=== PATIENT | male | born 1945 | race Caucasian/White ===

== ENCOUNTER 2022-09-03 08:49 | Emergency (ER) | payer MEDICARE, BC, SELFPAY ==
[2022-09-03 09:38] VITALS: BP 145/59; PULSE 82; RESP 18; TEMP 36.7; O2SAT 96; BMI 38.2
[2022-09-03 09:43] LABS: UTC Strep Screen (Rapid) Negative (Negative)
--- NOTE | 2022-09-03 10:00 | EXP.UTC ---
Discharge Plan Disposition Patient Disposition: Home, Self-Care Condition: Good Referrals Follow up/Referrals: Ari Tiwari MD [Primary Care Provider] - See instructions Activity Restrictions/Add. Instructions Additional Instructions/Restrictions: Take antibiotics at home Clinical Impressions Clinical Impression: Right otitis media [place] ED [place]: Michaela Schofield [facility] [place] Stated complaint: Sore throat, RT ear pain Mode of Arrival: Ambulatory Source of Information: Patient Limitations: No Limitations Time Seen by Provider: 09/03/22 10:00 Description of Symptoms (Recalled from Triage Doc. by RN): pt comes in with c/o right ear pain for 3 days, and throat pain for 2 days HEENT Symptoms (Recalled from RN notes): Yes Resp Symptoms (Recalled from RN notes): No Skin Symptoms (Recalled from RN notes): No MS Symptoms (Recalled from RN notes): No Functional Status (Recalled from RN notes): n/a History of Present Illness Provider Complaint: Sore throat, sinus pain, right ear pain X 3 days. No fever. Onset (ago): day(s) (3) Associated symptoms: denies other symptoms Treatments prior to arrival: none Related Data Allergies Allergy/AdvReac Type Severity Reaction Status Date / Time No Known Allergies Allergy Verified 09/03/22 09:41 Worker's Comp Is this a Worker's Comp case?: No PFSH PFSH Social History Smoking Status: Never smoker alcohol intake: never current occupational status: retired Travel in the last 8 weeks: None ROS Obtained: Yes All systems reviewed & no additional complaints except as documented Constitutional Constitutional: Denies fever(s) ENT Ears, Nose, Mouth, and Throat: Reports otalgia, Reports sinus pressure and Reports sore throat Physical Exam General General appearance: alert and in no apparent distress Head Head exam: atraumatic, normocephalic and normal inspection Eye Eye exam: Present normal appearance, PERRL and EOMI ENT ENT exam: Present normal exam, normal oropharynx, mucous membranes moist and normal external ear exam Expanded ENT Exam TM/Canal exam: Right TM: erythema and effusion Neck Neck exam: Present normal inspection, full ROM and trachea midline; Absent meningismus or lymphadenopathy Chest Chest inspection: Present normal inspection and symmetric chest wall rise; Absent tenderness Respiratory Respiratory exam: Present normal lung sounds bilaterally; Absent respiratory distress Cardiovascular Cardiovascular exam: Present regular rate and normal rhythm; Absent JVD Abdominal Exam Abdominal exam: Present soft and normal bowel sounds; Absent distention, tenderness or guarding Extremities Exam Extremities exam: Present normal inspection, full ROM and normal capillary refill; Absent calf tenderness Back Exam Back exam: Present normal inspection; Absent tenderness Neurological Exam Neurological exam: Present alert and oriented X3 Psychiatric Psychiatric exam: Present normal affect and normal mood Skin Skin exam: Present warm, dry, intact and normal color Lymphatic Lymphatic Findings: no adenopathy Medical Decision Making Frank Inquiry Pt receiving controlled substance: No Vital Signs: 09/03/22 09:38 Temperature 98.1 F Temperature Source Oral Pulse Rate [Left Radial] 82 Respiratory Rate 18 Blood Pressure [Right Arm] 145/59 H Blood Pressure Mean [Right Arm] 87 02 Sat by Pulse Oximetry 96 Lab Data Lab results reviewed: Yes I reviewed the patient's lab results. Lab Results 09/03/22 09:30: Strep Scn Rapid Clinic Negative Orders (Tests/Meds): ORDERS Category Date Time Status Strep Screen Confirmation Stat Micro 09/03/22 09:30 Received
[2022-09-03 10:24] VITALS: BP 145/59; PULSE 82; RESP 18; TEMP 36.7
== END 2022-09-03 10:25 | disposition home or self-care (01) ==
PROVIDERS: Emergency Provider Physician Assistant; PCP Emergency Medicine
DX: H66.91 Otitis media, unspecified, right ear (principal)
CPT/HCPCS: 87880; 99212; G0463

== ENCOUNTER 2023-12-12 09:51 | Outpatient (RCR) | payer MEDICARE, BC, SELFPAY | END 2024-01-25 15:00 | disposition home or self-care (01) | LOC: PT 09:51 | PROVIDERS: Visit Provider Emergency Medicine | DX: I25.810 Atherosclerosis of coronary artery bypass graft(s) without angina pectoris (principal); Z95.1 Presence of aortocoronary bypass graft | CPT/HCPCS: 93798 ==

== ENCOUNTER 2024-06-29 09:03 | Outpatient (CLI) | payer MEDICARE, BC, SELFPAY ==
[2024-06-29 09:21] LABS: Microscopic, Urine URINE MICROSCOPIC (MICROSCOPIC)
[2024-06-29 09:52] LABS: Basophils # 0.1 K/mm3 (0-0.2); Eosinophils # 0.2 K/mm3 (0.0-0.4); Eosinophils % 2.7 % (0.1-12.0); Hematocrit 46.1 % (42.0-52.0); Hemoglobin 15.1 g/dL (14.1-18.0); Lymphocytes # 1.2 K/mm3 (0.7-4.5); Lymphocytes % 14.4 % (10-50); Mean Corpuscular HGB Conc 32.8 g/dL (31.8-35.4); Mean Corpuscular Hemoglobin 29.7 pg (27.0-31.2); Mean Corpuscular Volume 90.6 fl (80-94); Mean Platelet Volume 8.2 fl (7.4-10.4); Monocytes # 0.6 K/mm3 (0.1-1.0); Monocytes % 7.3 % (1.7-9.3); Neutrophils # 6.1 K/mm3 (1.8-7.8); Neutrophils % 74.5 % (37.0-80.0); Platelet Count 206 K/mm3 (142-424); Red Blood Count 5.09 M/mm3 (4.60-6.20); Red Cell Distribution Width 14.1 % (11.5-17.5); White Blood Count 8.1 K/mm3 (4.8-10.8)
[2024-06-29 10:03] LABS: Appearance,Urine CLEAR (Clear); Bilirubin,Urine Negative (Negative); Blood, Urine Negative (Negative); Color,Urine YELLOW (Yellow); Glucose,Urine (UA) Negative (Negative); Ketones,Urine Negative (Negative); Leukocyte Esterase,Urine Negative (Negative); Nitrate,Urine Negative (Negative); Protein,Urine Negative (Negative); Urobilinogen,Urine 0.2 EU/dl (0.2)
[2024-06-29 10:26] LABS: Hemoglobin A1C 7.7 % (4.0-6.0)
[2024-06-29 10:34] LABS: Alanine Aminotransferase 29 U/L (12-78); Albumin Level 3.7 g/dl (3.5-5.0); Albumin/Globulin Ratio 1.4 (1.1-1.8); Alkaline Phosphatase 68 U/L (38-126); Anion Gap 7.6 mEq/L (5-15); Aspartate Amino Transferase 33 U/L (17-59); Bilirubin,Total 0.7 mg/dl (0.2-1.3); Blood Urea Nitrogen 19 mg/dl (9-20); Calcium 8.8 mg/dl (8.4-10.2); Carbon Dioxide 27 mmol/L (22.0-30.0); Chloride 107 mmol/L (98-107); Chol/HDL Ratio 3.4 (1-3.5); Cholesterol 141 mg/dl (140-200); Estimated Glomerular Filt Rate 109 ml/min (>60); GFR (African American) 132 ML/MIN (>60); Globulin 2.6 g/dL (1.3-3.2); Glucose 96 mg/dl (74-100); HDL Cholesterol 42 mg/dl (40-60); Potassium 4.6 mmoL/L (3.5-5.1); Sodium 137 mmol/L (136-145); Total Protein,Serum 6.3 g/dl (6.3-8.2); Triglycerides 110 mg/dl (30-150); VLDL Cholesterol 22 mg/dL (0-40)
[2024-06-29 10:45] LABS: Direct LDL Cholesterol 70.93 mg/dL (100-129)
[2024-06-29 10:53] LABS: 25-OH Vitamin D, Total 46.9 ng/mL (30-100)
[2024-06-29 11:03] LABS: Thyroid Stimulating Hormone 3.21 uIU/mL (0.465-4.68)
[2024-06-29 11:26] LABS: Squamous Epithelial Cell,Urine Occasional #/hpf (0-5); WBC,Urine Occasional #/hpf (0-3)
[2024-06-29 11:39] LABS: Vitamin B12 312 pg/mL (239-931)
[2024-06-29 12:01] LABS: Folate 9.82 ng/mL
== END 2024-06-29 23:59 | disposition home or self-care (01) ==
LOC: LAB 09:06
PROVIDERS: PCP Emergency Medicine; Visit Provider Emergency Medicine
DX: E11.9 Type 2 diabetes mellitus without complications (principal); E55.9 Vitamin D deficiency, unspecified; I10 Essential (primary) hypertension; E03.9 Hypothyroidism, unspecified; R53.83 Other fatigue; E78.5 Hyperlipidemia, unspecified
CPT/HCPCS: 36415; 80053; 80061; 81001; 82306; 82607; 82746; 83036; 84443; 85025

== ENCOUNTER 2024-11-10 09:56 | Emergency (ER) | payer MEDICARE, BC, SELFPAY ==
[2024-11-10 10:10] VITALS: BP 180/76; PULSE 74; RESP 18; TEMP 36.6; O2SAT 96; BMI 36.1
--- NOTE | 2024-11-10 10:26 | EXP.UTC ---
Discharge Plan Disposition Patient Disposition: Home, Self-Care Condition: Good Prescriptions Prescriptions: New benzonatate 100 mg capsule 100 mg PO TID PRN (Reason: cough) Qty: 30 0RF azithromycin 250 mg tablet See Rx Instructions .ROUTE .COMPLEX Qty: 6 0RF Rx Instructions: For 250 mg dose pack: take 500 mg today (day 1), then 250 mg for 4 days (days 2-5) No Action insulin aspart U-100 [Novolog FlexPen U-100 Insulin] 100 unit/mL (3 mL) insulin pen 1 sliding scale dose SQ DIRECTED lisinopril 5 mg tablet 5 mg PO DAILY tamsulosin 0.4 mg capsule 0.4 mg PO DAILY gabapentin 300 mg capsule 300 mg PO HS levothyroxine 125 mcg tablet 125 mcg PO DAILY Eliquis 5 mg tablet 2.5 mg PO BID aspirin [Adult Aspirin Regimen] 81 mg tablet,delayed release (DR/EC) 81 mg PO BID carvedilol 6.25 mg tablet 6.25 mg PO DAILY Referrals Follow up/Referrals: Ari Tiwari MD [Primary Care Provider] - See instructions Activity Restrictions/Add. Instructions Additional Instructions/Restrictions: Take medication as prescribed. If symptoms persist or worsen, return to clinic or go to PCP. Take BP medication once you are home. Do not take OTC cold medications as these can increase your blood pressure. Clinical Impressions Clinical Impression: Upper respiratory tract infection Qualifiers: URI type: unspecified URI Qualified Code(s): J06.9 - Acute upper respiratory infection, unspecified Instructions Patient Instructions: DI for Viral Upper Respiratory Infection -- Adult Print Language Print Language: Greek Discharge ED Provider: Lien Granados [facility] – [place], [place] HPI General Stated complaint: stuffy head, watery eyes, chest aches from cough Mode of Arrival: Ambulatory Source of Information: Patient Time Seen by Provider: 11/10/24 10:08 Description of Symptoms (Recalled from Triage Doc. by RN): sinus pressure, cough, congestion, X1 WEEK HEENT Symptoms (Recalled from RN notes): No Resp Symptoms (Recalled from RN notes): Yes Skin Symptoms (Recalled from RN notes): No MS Symptoms (Recalled from RN notes): No Functional Status (Recalled from RN notes): WNL History of Present Illness Provider Complaint: Pt reports that he has been sick for the last 10 days with cough, runny nose, body aches, and watery eyes. He reports that he has been taking Mucinex for his symptoms. recently got sick with the same symptoms. Pt BP is elevated and pt relates that he has not taken his medication today. Related Data Home Medications ?Medication ?Instructions ?Recorded ?Confirmed apixaban 5 mg tablet (Eliquis) 2.5 mg PO BID 09/12/23 09/12/23 aspirin 81 mg tablet,delayed 81 mg PO BID 09/12/23 11/10/24 release (Adult Aspirin Regimen) gabapentin 300 mg capsule 300 mg PO HS 09/12/23 11/10/24 insulin aspart U-100 100 unit/mL 1 sliding scale dose SQ DIRECTED 09/12/23 11/10/24 (3 mL) subcutaneous pen (Novolog FlexPen U-100 Insulin aspart) levothyroxine 125 mcg tablet 125 mcg PO DAILY 09/12/23 11/10/24 lisinopril 5 mg tablet 5 mg PO DAILY 09/12/23 11/10/24 tamsulosin 0.4 mg capsule 0.4 mg PO DAILY 09/12/23 11/10/24 carvedilol 6.25 mg tablet 6.25 mg PO DAILY 11/10/24 11/10/24 Previous Rx's ?Medication ?Instructions ?Recorded azithromycin 250 mg tablet See Rx Instructions PO .COMPLEX #6 11/10/24 tabs benzonatate 100 mg capsule 100 mg PO TID PRN cough #30 caps 11/10/24 Allergies Allergy/AdvReac Type Severity Reaction Status Date / Time No Known Allergies Allergy Verified 09/12/23 13:43 Worker's Comp Is this a Worker's Comp case?: No [facility] Disclaimer: The information contained in this section may have been updated after the patient was seen, as this information can be updated by other users. Medical History (Updated 11/10/24 @ 10:35 by Lien Granados APRN) Chronic otitis externa of right ear Dermatitis of ear canal Hearing loss Prostate cancer Atrial fibrillation HTN (hypertension), benign Hyperthyroidism T2DM (type 2 diabetes mellitus) Surgical History (Updated 09/12/23 @ 14:03 by JOANN Ayala) H/O total knee replacement History of cholecystectomy Hx of tonsillectomy Family History (Updated 09/12/23 @ 14:04 by JOANN Ayala) Other Cancer Diabetes Heart attack Hypertension Stroke Thyroid disorder Social History Smoking Status: Never smoker alcohol intake: never current occupational status: retired Travel in the last 8 weeks: None Have you lived/traveled outside [place] in past 30 days?: No Contact w/someone who lives/traveled outside [place] past 30 days?: No Exposure to someone with infectious disease in past 14 days?: No Do you have a fever (greater than 100.4 F or 38 C)?: No Have you tested positive for COVID-19: No Exposed to someone with COVID-19 in past 14 days?: No Do you have a sore throat?: No Do you have a cough?: Yes Do you have any weakness?: No Do you have any diarrhea?: No Are you experiencing any unusual bleeding?: No Do you have any muscle aches/pain?: No Do you have any abdominal pain?: No Are you experiencing loss of taste or smell?: No ROS Obtained: Yes All systems reviewed & no additional complaints except as documented Constitutional Constitutional: Reports system reviewed and no additional complaints, except as documented, Reports body ache and Reports malaise Eyes Eyes: Reports system reviewed and no additional complaints, except as documented, Reports eye discharge and Reports irritation ENT Ears, Nose, Mouth, and Throat: Reports system reviewed and no additional complaints, except as documented, Reports nasal congestion and Reports nasal discharge Cardiovascular Cardiovascular: Reports system reviewed and no additional complaints, except as documented Respiratory Respiratory: Reports system reviewed and no additional complaints, except as documented and Reports cough Gastrointestinal Gastrointestingal: Reports system reviewed and no additional complaints, except as documented Genitourinary Male Genitourinary: Reports system reviewed and no additional complaints, except as documented Musculoskeletal Musculoskeletal: Reports system reviewed and no additional complaints, except as documented Integumentary/Breasts Skin/Breast: Reports system reviewed and no additional complaints, except as documented Neurologic Neurologic: Reports system reviewed and no additional complaints, except as documented Endocrine Endocrine: Reports system reviewed and no additional complaints, except as documented Hematologic/Lymphatic Henatologic/Lymphatic: Reports system reviewed and no additional complaints, except as documented Allergic/Immunologic Allergic/Immunologic: Reports system reviewed and no additional complaints, except as documented Physical Exam General General appearance: alert Comment: ill appearing Head Head exam: atraumatic and normocephalic Eye Eye exam: Present conjunctival redness and discharge (clear drainage) Expanded ENT Exam External ear exam: Present normal external inspection Nose exam: Absent sinus tenderness Nasal speculum exam: Bilateral: other (clear) Mouth exam: Present normal external inspection Teeth exam: Present normal inspection Throat exam: Present normal inspection Neck Neck exam: Present normal inspection; Absent lymphadenopathy Chest Chest inspection: Present normal inspection and symmetric chest wall rise Respiratory Respiratory exam: Present other (course sounds throughout) Cardiovascular Cardiovascular exam: Present regular rate and normal rhythm Abdominal Exam Abdominal exam: Present soft Extremities Exam Extremities exam: Present normal inspection Back Exam Back exam: Present normal inspection Neurological Exam Neurological exam: Present alert and oriented X3 Psychiatric Psychiatric exam: Present normal affect and normal mood Skin Skin exam: Present warm, dry and intact Lymphatic Lymphatic Findings: no adenopathy Medical Decision Making Medical Records Screening: Per USPSTF and CDC recommendations, given the prevalence of disease in our region, it is our hospital?s policy to screen for HIV and viral Hepatitis for all patients aged 18 and over and those with ongoing risk factors. Frank Inquiry Pt receiving controlled substance: No Frank was queried for this patient: No Vital Signs: 11/10/24 10:10 Temperature 97.8 F Temperature Source Oral Pulse Rate [Left Radial] 74 Respiratory Rate 18 Blood Pressure [Left Arm] 180/76 H Blood Pressure Mean [Left Arm] 110 02 Sat by Pulse Oximetry 96
[2024-11-10 10:44] VITALS: BP 180/76; PULSE 74; RESP 18; TEMP 36.6
[2024-11-10 10:46] VITALS: BP 151/61
== END 2024-11-10 10:50 | disposition home or self-care (01) ==
PROVIDERS: Emergency Provider Nurse Practitioner Family; PCP Emergency Medicine
DX: J06.9 Acute upper respiratory infection, unspecified (principal)
CPT/HCPCS: 99213; G0381

== ENCOUNTER 2024-11-12 16:48 | Outpatient (CLI) | payer MEDICARE, BC, SELFPAY ==
[2024-11-12 17:21] LABS: Basophils # 0.1 K/mm3 (0-0.2); Basophils % 0.6 % (0.1-2.0); Eosinophils # 0.1 K/mm3 (0.0-0.4); Eosinophils % 0.6 % (0.1-12.0); Hematocrit 43.6 % (42.0-52.0); Lymphocytes # 0.8 K/mm3 (0.7-4.5); Lymphocytes % 7.4 % (10-50); Mean Corpuscular HGB Conc 34.4 g/dL (31.8-35.4); Mean Corpuscular Hemoglobin 29.4 pg (27.0-31.2); Mean Corpuscular Volume 85.5 fl (80-94); Mean Platelet Volume 9.8 fl (7.4-10.4); Monocytes # 0.6 K/mm3 (0.1-1.0); Monocytes % 5.4 % (1.7-9.3); Neutrophils # 8.9 K/mm3 (1.8-7.8); Neutrophils % 82.3 % (37.0-80.0); Platelet Count 278 K/mm3 (142-424); Red Cell Distribution Width 12.6 % (11.5-17.5); White Blood Count 10.9 K/mm3 (4.8-10.8)
[2024-11-12 17:47] LABS: Lipase 60 U/L (23-300)
[2024-11-12 18:44] LABS: Amylase 46 U/L (30-110)
== END 2024-11-12 23:59 | disposition home or self-care (01) ==
LOC: LAB 16:51
PROVIDERS: PCP Emergency Medicine; Visit Provider Emergency Medicine
DX: J15.0 Pneumonia due to Klebsiella pneumoniae (principal)
CPT/HCPCS: 36415; 82150; 83690; 85025; 87040

== ENCOUNTER 2024-12-04 11:19 | Outpatient (CLI) | payer MEDICARE, BC, SELFPAY ==
[2024-12-04 11:39] LABS: Coronavirus 19, PCR Not Detected (NotDetected); Human Rhinovirus Not Detected (NotDetected); Influenza A, PCR Not Detected (NotDetected); Influenza B, PCR Not Detected (NotDetected); Respiratory Syncytial Virus Not Detected (NotDetected)
[2024-12-04 11:54] LABS: Basophils # 0.1 K/mm3 (0-0.2); Basophils % 0.7 % (0.1-2.0); Eosinophils # 0.2 K/mm3 (0.0-0.4); Eosinophils % 2.8 % (0.1-12.0); Hematocrit 42.6 % (42.0-52.0); Hemoglobin 14.5 g/dL (14.1-18.0); Lymphocytes # 0.7 K/mm3 (0.7-4.5); Lymphocytes % 9.9 % (10-50); Mean Corpuscular Hemoglobin 29.3 pg (27.0-31.2); Mean Corpuscular Volume 86.1 fl (80-94); Mean Platelet Volume 10.2 fl (7.4-10.4); Monocytes # 0.7 K/mm3 (0.1-1.0); Monocytes % 10.6 % (1.7-9.3); Neutrophils # 5.1 K/mm3 (1.8-7.8); Neutrophils % 75.1 % (37.0-80.0); Platelet Count 204 K/mm3 (142-424); Red Blood Count 4.95 M/mm3 (4.60-6.20); Red Cell Distribution Width 13.1 % (11.5-17.5); White Blood Count 6.8 K/mm3 (4.8-10.8)
--- NOTE | 2024-12-04 12:10 | ECG_ITS ---
APPROVED REPORT Exam: Resting ECG HR:67 bpm ECG Measurements Heart Rate 67 AXES DE 195 P -48 QRSd 123 QRS 109 QT 420 T 81 QTc 435 Conclusion SINUS RHYTHM WITH SINUS ARRHYTHMIA RIGHT AXIS DEVIATION [QRS AXIS > 100] RIGHT BUNDLE BRANCH BLOCK [120+ ms QRS DURATION, UPRIGHT V1, 40+ ms S IN I/aVL/V4/V5/V6] ANTEROSEPTAL MYOCARDIAL INFARCTION , OF INDETERMINATE AGE [40+ ms Q WAVE IN V1-V4] ABNORMAL ECG Electronically signed by : AMARA CORTES, 12/14/2024 09:31:08
[2024-12-04 12:32] LABS: Troponin I < 0.01 ng/ml (0.00-0.034)
== END 2024-12-04 23:59 | disposition home or self-care (01) ==
LOC: LAB 11:22
PROVIDERS: PCP Emergency Medicine; Visit Provider Emergency Medicine
DX: R05.2 Subacute cough (principal); R09.89 Other specified symptoms and signs involving the circulatory and respiratory systems
CPT/HCPCS: 36415; 84484; 85025; 87631; 93005

== ENCOUNTER 2025-03-11 09:12 | Outpatient (CLI) | payer MEDICARE, BC, SELFPAY ==
--- OUTSIDE RECORDS SUMMARY | 2025-03-11 09:17 | XMS_ITS | Data Portability ---
Author Organization [facility] Address [address] [place] [address] Assessment Encounter Date Assessment Date Assessment LastModified by Organization Details LastModified Time 08/29/2020 08/29/2020 SURGERY DATE: 08/29/2020 PREOPERATIVE DIAGNOSIS: Prostate cancer. POSTOPERATIVE DIAGNOSIS: Prostate cancer. PROCEDURE: Transrectal ultrasound-guided insertion of gold fiducials (4). ANESTHESIA: Local. INDICATIONS: This is a 75-year-old white male who was diagnosed with prostate cancer by Dr. Paul Briseno. He then saw Dr. Ilan Oro at [facility] and is scheduled for IMRT (43 fractions) and will be receiving LHRH injection by Dr. Garvey next week. OPERATIVE NOTE: The patient was placed on the operating room table in a left lateral decubitus position. The B and K transrectal ultrasound probe was introduced. A 10 mm of Xylocaine was injected at the base and apex of the prostate for local anesthesia. The gland measured 78.7 cubic cm in volume. The ultrasound was then used to guide gold fiducials into the right lateral, left lateral, apex, and base of the prostate without difficulty. The probe was then removed atraumatically and he was taken to the recovery room in stable condition. There were no complications. [email or web address] Not available 08/29/2020 23:50:30 Plan of Treatment Reminders Order Date Submit Date Provider Last Modified By Organization Details Last Modified Time Details Appointments None recorded. Lab None recorded. Referral None recorded. Procedures None recorded. Surgeries None recorded. Imaging None recorded. Medication Orders betamethaso ne valerate 0.1 % topical ointment 2018 019 [id number], [address] [place], [id number], 9 14:55:26 Patient TargetsNo targets recorded. Patient Instructions Encounter Date Encounter Id Patient Instructions Last Modified By Organization Details Last Modified Time 02/16/2019 [id number] 1. 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 2. Right foreign body removal performed today. Full risks, complications, and benefits of operative versus non-operative intervention have been thoroughly discussed. Understanding was expressed, informed consent given, and we will proceed with the discussed operative treatment plan. There were no questions for me at the end of the office visit. 3. RX-Betamethasone ointment-place topically in the ears bid 4. HAE recommended 5. Use hearing protection around loud noises 6. Recommend Mucinex for drainage 7. F/u prn nstaton Not available 02/16/2019 15:51:20 Reason for Referral None Reported. 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 BARCODE Not Available 2018 11:58:32 Result Notes None recorded. Problems Name Problem SNOMED Code Status Onset Date Resolution Date Notes Provider Name and Address Organization Details Recorded Time Functional diarrhea 09306329 Active 2014 From Automated Load;Provi kay: Thomas Baca tus: Active Not Available [facility] 6 07:45:31 Cirrhosis of liver 63840123 Active 2015 From Automated Load;Provi kay: Thmoas Baca tus: Active Not Available [facility] 6 07:45:31 Abdominal pain 80911869 Active 2015 From Automated Load;Provi kay: Leonarda Baca;Sta tus: Active Not Available [facility] 6 07:45:31 Problem Notes None recorded. Procedures Surgical History Date Name Laterality Status Provider Name and Address Organization Details Recorded Time 02/17/20 Tympanogram completed NISHI WOOTEN, AUD [address] [place], [address], [facility] 02/16/2019 15:25:37 02/17/20 Audiogram completed NISHI WOOTEN, AUD [address] [place], [address], [facility] 02/16/2019 15:25:35 02/17/20 Removal Foreign Body; Ear completed Beata Nieves [facility] 02/16/2019 15:48:57 Remove tonsils and adenoids completed [facility] 02/16/2019 15:18:52 cholecystostomy completed [facility] 02/16/2019 15:19:00 Unlisted px hands/fingers completed [facility] 02/16/2019 15:19:21 Imaging Results Imaging Date Name Status LastModified by Organiz ation Details LastModified Time 02/16/2019 audiogram completed [facility] Information no t available 02/19/2019 11:58:32 Procedure Notes None recorded. Medical Equipment None Reported. Allergies No known drug allergies Medications Name Sig Start Date Stop Date Status Note LastModified by Organization Details LastModified Time fleet enema extra DIRECTED 3-4 HOURS PRIOR TO BIOPSY active Not Available Not Available No t Available penicilli n V potassium 250 mg tablet 02/16 completed Not Available Not Available Not Available betametha sone valerate 0.1 % topical ointment APPLY A THIN LAYER TO THE AFFECTED AREA(S) BY TOPICAL ROUTE ONCE DAILY active Not Available Not Available No t Available fluconazo le 150 mg tablet active Not Available Not Available Not Available prednison e 20 mg tablet 02/16 completed Not Available Not Available Not Available ciproflox acin 500 mg tablet TK 1 T PO BID STARTING DAY PRIOR TO PROCEDUR E active Not Available Not Available No t Available aspirin 81 mg tablet,de layed release Take 1 tablet every day by oral route. active Not Available Not Available No t Available Flomax 0.4 mg capsule,e xtended release Take 1 capsule every day by oral route. active Not Available Not Available No t Available oxycodone -acetamin ophen 5 mg-325 mg tablet active Not Available Not Available Not Available tamsulosi n 0.4 mg capsule active Not Available Not Available Not Available betametha sone valerate 0.1 % topical cream active Not Available Not Available Not Available pantopraz ole 40 mg tablet,de layed release 02/16 completed Not Available Not Available Not Available levothyro xine 125 mcg tablet Take 1 tablet every day by oral route. active Not Available Not Available No t Available gabapenti n 300 mg capsule active Not Available Not Available Not Available lisinopri l 5 mg tablet active Not Available Not Available Not Available Novolog U-100 Insulin aspart 100 unit/mL subcutane ous solution active Not Available Not Available Not Available hydroxyzi ne HCl 10 mg tablet TK 1 TO 2 TS PO Q 8 H FOR RASH active Not Available Not Available No t Available colestipo l 1 gram tablet active Not Available Not Available Not Available metronida zole 0.75 % topical gel active Not Available Not Available Not Available amoxicill in 875 mg-potass ium clavulana te 125 mg tablet TK 1 T PO BID FOR 5 DAYS active Not Available Not Available No t Available azithromy andrew 500 mg tablet take 1 tablet by mouth once daily active Not Available Not Available No t Available Colestid 5 gram oral granules 02/16 completed Medicati on Descript ion: colestip ol; Route:or al; refills: 0 Not Available Not Available Not Available Neurontin active Not Available Not Wanda ilable Not Available Vitamin D3 Every week 2014 active Instruct ions: take one capsule once weekly as directed ;Frequen cy: Every week;Med ication Descript ion: cholecal ciferol; Dosage:1 ; Route:or al; refills: 3; Quantity :4 capsule Not Available Not Available Not Available Nexium active Not Available Not Availa ble Not Available Levemir U-100 Insulin 100 unit/mL subcutane ous solution Daily 02/16 completed Instruct ions: 13 units daily;Fr equency: daily;Me dication Descript ion: insulin detemir; Dosage:a s directed ; Route:luong bcutaneo us; refills: 0 Not Available Not Available Not Available vitamin E 15 unit/0.3 mL oral drops active Medicati on Descript ion: vitamin E; Route:or al; refills: 0; Quantity :1 capsule Not Available Not Available Not Available Protonix 40 mg granules delayed-r elease packet Two times a day 02/16 completed Frequenc y: bid;Medi cation Descript ion: pantopra zole; Dosage:1 ; Route:or al; refills: 3; Quantity :60 granule, enteric coated Not Available Not Available Not Available Accu-Chek Diandra Plus test strips TEST TWICE A DAY active Not Available Not Available No t Available Eliquis 2.5 mg tablet active Not Available Not Available Not Available Creon 36,000 unit-114, 000 unit-180, 000 unit capsule,d elayed release before meals 02/16 completed Duration : 30 days;Ins truction s: take 1 capsule by mouth before meals;Fr equency: ac;Medic ation Descript ion: pancreli pase; Dosage:1 ; Route:or al; refills: 5; Quantity :90 delayed release capsule Not Available Not Available Not Available Tresiba FlexTouch U-200 insulin 200 unit/mL (3 mL) subcutane ous pen active Not Available Not Available Not Available Tresiba FlexTouch U-100 02/16 completed Not Available Not Available Not Available BD Veo Insulin Syringe Ultra-Fin e 1/2 mL 31 gauge x 15/64 active Not Available Not Available Not Available Vitals Date Recorded Body weight Body mass index (BMI) Body height Body temperature Heart rate Systolic blood pressure Diastolic blood pressure Provider Name and Address Organization Details Last Updated DateTime 9 066185. 6 g 36.8 kg/m2 175.26 cm 97.9 [degF] 90 /min 135 mm[Hg] 72 mm[Hg] Uvaldo Ames [facility] 9 15:21:56 Social History Question Answer Notes LastModified by Organizat ion Details LastModified Time Tobacco Smoking Status Never Smoker Uvaldo Ames [facility] 02/16/2019 15:18:41 What Was The Date Of Your Most Recent Tobacco Screening? 02/16/2019 Information n ot available 12/18/2019 Sex: Unknown Functional Status Question Answer Note LastModified by Organization D etails LastModified Time What is your level of alcohol consumption? None asalva Information not available 02/16/2019 Mental Status None recorded. Family History Relationship Description Onset Age of this Age Resolved Age Notes LastModified by Organization Details LastModified Time Father Family history of malignant neoplasm lung asalva Not available 2018 15:18:21 Father History of hypertension asalva Not available 15:18:35 Brother Family history of malignant neoplasm lung asalva Not available 2018 15:18:21 Medical History Condition Response Cancer N Bleeding Disorder N Anesthesia Complications N Diabetes Y Hypertension N Past Encounters Encounter ID Performer Location Encounter Start Date Encounter Closed Date Diagnosis/Indication Diagnosis SNOMED-CT Code Diagnosis ICD10 Code Diagnosis Note [id number] [facility] [address] 01/31/2017 22:37:19 01/31/2017 22:37:19 [id number] MD KARLY HODGE [facility] [address] [place] [address] 02/16/2019 14:56:21 02/16/2019 16:56:17 Mixed conductive and sensorineural hearing loss of right ear 5227099210 9105 H90.A31 Sensorineu ral hearing loss in left ear 4764111642 9109 H90.A22 Dysfunctio n of right eustachian tube 2063657034 698337 H69.91 Foreign body in ear 7544 1006 T16.1XXA - Loose hair Chronic ot itis externa 44811697 H60.63 [id number] [place] [facility] [address] [place] [address] 02/16/2019 15:25:17 02/19/2019 10:23:01 Dysfunction of eustachian tube 17700510 H69.91 Mixed cond uctive and sensorineural hearing loss of right ear 3351762449 9105 H90.A31 [id number] MARCELLUS HALLMAN MD SURGERY SCHEDULE [address] [place] [address] 08/29/2020 11:41:32 08/29/2020 11:45:52 Health Concerns Section Related Observation LastModified by Organization Detai ls LastModified Time None Recorded Concern Status LastModified by Organization Details LastModified Time None Recorded Advance Directives Directive None Recorded Payers Insurance Date Sequence Insurance Name Policy Number Policy [place] Covered Member ID [place] Member ID Guarantor Name 09/05/2020 1 [place] Janusz Jessica [id number] Rio Lopez 09/05/2020 2 [place]IC[place] [id number] Rio Lopez [id number] Rio Lopez Notes Date Note Type Note Provider Name and Address Organization Details Recorded Time 02/16/2019 text/html Rio comes in today for a hearing evaluation. He also ahas a history of chronic dry otitis externa which he has treated with betamethasone cream in the past. His right ear does give him more issue than the right. He does have a history of noise exposure. He does not complain of ear pain or any sudden changes in his hearing. He does notice an increase in drainage particularly at night. Rio is doing well otherwise. BALDEV DESAI III, MD [address] [place] [address], [phone], [facility] 02/16/2019 16:49:42
--- OUTSIDE RECORDS SUMMARY | 2025-03-11 09:17 | XMS_ITS | Data Portability ---
Author Organization [facility] ADMIN Address [address] [place] [id number] Assessment No assessment recorded. Plan of Treatment Reminders Order Date Submit Date Provider Last Modified By Organization Details Last Modified Time Details Appointments OV EST 15 2024 11:00A Adebayo Batres M.D Not available Not available Not available Lab PSA, serum or plasma 2023 024 [facility] (Lab Registration) , [address] [place] [address] [place], [address], 06/12/2024 20:43:04 Referral None recorded. Procedures None recorded. Surgeries None recorded. Imaging None recorded. Medication Orders tamsulosi n 0.4 mg capsule 2023 024 [facility], [address] [place] [address], [id number], 06/12/2024 11:50:47 Patient TargetsNo targets recorded. Patient InstructionsNo instructions recorded. Reason for Referral None Reported. Results Created Date Observation Date Name Description Value Unit Range Abnormal Flag Note LastModifiedBy Organization Detail LastModifiedTime 06/12/2006/12/2024 PROST ATE SPECI FIC AG (PSA) PSA <0.064 NG/mL 0.00-4 .00 Not Available [facility] (Pre-Op Clinic) [address] [place] [address] [place], [address], 06/12/2024 20:43:04 06/12/20 24 06/12/2024 PROST ATE SPECI FIC AG (PSA) note Unles s other lee noted testi ng perfo rmed at: [facility] [address] [place] [address] Armen ennis MD Not Available [facility] (Pre-Op Clinic) [address] [place] [address] [place], [address], 06/12/2024 20:43:04 Result Notes None recorded. Problems Name Problem SNOMED Code Status Onset Date Resolution Date Notes Provider Name and Address Organization Details Recorded Time Sensorineu ral hearing loss 64056848 Active 2022 ROBERTH MORALES, AUD [address] [facility], [place], [address] , [place] - [facility] - [place] & [place] 3 15:39:11 Lower urinary tract symptoms due to benign prostatic hypertroph y 0317698243903 1 Active 2022 Yarelis Walsh null, [place] - [facility] - [place] & [place] 3 14:34:13 Malignant neoplasm of prostate 215358781 Active 2022 Yarelis Walsh null, [place] [facility] [place] 3 14:34:19 Benign prostatic hyperplasi a 375491404 Active 2022 Yarelis Walsh null, [place] [facility] [place] 3 14:36:02 Problem Notes None recorded. Medical Equipment None Reported. Allergies No known drug allergies Medications Name Sig Start Date Stop Date Status Note LastModified by Organization Details LastModified Time amoxicillin 500 mg capsule 12/04 completed Not Available Not Available Not Available neomycin-po lymyxin-hyd rocort 3.5 mg/mL-10,00 0 unit/mL-1 % ear solution active Not Available Not Available Not Available atorvastati n 80 mg tablet TAKE 1 TABLET BY MOUTH AT BEDTIME active Not Available Not Available No t Available carvedilol 6.25 mg tablet TAKE 1 TABLET BY MOUTH TWICE DAILY WITH MEALS active Not Available Not Available No t Available fluconazole 150 mg tablet active Not Available Not Available Not Available metronidazo le 500 mg tablet TAKE 1 TABLET BY MOUTH TWICE DAILY UNTIL GONE 12/04 completed Not Available Not Available Not Available ciprofloxac in 500 mg tablet TAKE 1 TABLET BY MOUTH TWICE DAILY UNTIL GONE 12/04 completed Not Available Not Available Not Available tramadol 50 mg tablet TAKE 1 TABLET BY MOUTH EVERY 12 HOURS NEEDED FOR PAIN 12/04 completed Not Available Not Available Not Available tamsulosin 0.4 mg capsule Take 1 capsule twice a day by oral route for 90 days. active Not Available Not Available No t Available hydrocortis one-acetic acid 1 %-2 % ear drops active Not Available Not Available Not Available betamethaso ne valerate 0.1 % topical cream active Not Available Not Available Not Available esomeprazol e magnesium 40 mg capsule,del ayed release active Not Available Not Available Not Available levothyroxi ne 125 mcg tablet TAKE ONE TABLET BY MOUTH DAILY active Not Available Not Available No t Available nitroglycer in 0.4 mg sublingual tablet DISSOLVE 1 TABLET UNDER THE TONGUE NEEDED FOR ANGINA. MAY REPEAT EVERY 5 MINUTES FOR UP TO THREE DOSES active Not Available Not Available No t Available gabapentin 300 mg capsule TAKE 2 CAPSULES BY MOUTH DAILY AT BEDTIME active Not Available Not Available No t Available bumetanide 1 mg tablet TAKE 1 TABLET BY MOUTH TWICE WEEKLY active Not Available Not Available No t Available ammonium lactate 12 % topical cream APPLY TO THE AFFECTED AREA TWICE DAILY 12/04 completed Not Available Not Available Not Available lisinopril 5 mg tablet TAKE 1 TABLET BY MOUTH EVERY DAY active Not Available Not Available No t Available ergocalcife rol (vitamin D2) 1,250 mcg (50,000 unit) capsule TAKE ONE CAPSULE EVERY MONTH active Not Available Not Available No t Available Novolog U-100 Insulin aspart 100 unit/mL subcutaneou s solution INJECT SEVEN UNITS TWICE DAILY active Not Available Not Available No t Available amoxicillin 500 mg-potassiu m clavulanate 125 mg tablet active Not Available Not Available Not Available Novolog FlexPen U-100 Insulin aspart 100 unit/mL (3 mL) subcutaneou s INJECT 14 UNITS UNDER THE SKIN EVERY DAY active Not Available Not Available No t Available ciprofloxac in 0.3 %-dexametha sone 0.1 % ear drops,suspe nsion INSTLL 4 DROPS IN RIGHT EAR TWICE DAILY FOR 5-7 DAYS 12/04 completed Not Available Not Available Not Available Creon 24,000-76,0 00-120,000 unit capsule,del ayed release active Not Available Not Available Not Available Accu-Chek Diandra Plus test strips USE DIRECTED TO CHECK BLOOD SUGAR THREE TIMES DAILY active Not Available Not Available No t Available Eliquis 5 mg tablet TAKE 1 TABLET BY MOUTH TWICE DAILY active Not Available Not Available No t Available Vitals Date Recorded Body weight Body mass index (BMI) Body height Body temperature Provider Name and Address Organization Details Last Updated DateTime 06/12/2024 858765.09 g 36.9 kg/m2 175.26 cm 98.5 [degF] Brayan Jackson [facility] [place] 06/12/2024 11:05:52 Social History Question Answer Notes LastModified by Organizat ion Details LastModified Time Tobacco Smoking Status Never Smoker Yarelis bettencourt, [facility] & [place] 11/30/2022 14:36:31 Do You Have An Advance Directive? Yes Information not available 06/07/2023 Are You Blind Or Do You Have Difficulty Seeing? No [email or web address] Information not available 06/07/2023 What Was The Date Of Your Most Recent Tobacco Screening? 12/04/2022 Information not available 06/07/2023 Are You Passively Exposed To Smoke? No [email or web address] Information not available 06/07/2023 Sex: Unknown Functional Status Question Answer Note LastModified by Organizat ion Details LastModified Time Do you use any illicit or recreational drugs? No [email or web address] Information not available 06/07/2023 What is your level of alcohol consumption? None [email or web address] Information not available 11/30/2022 What is your exercise level? Moderate [email or web address] Information not available 06/07/2023 Mental Status None recorded. Family History Nothing Reported Notes:Mother: Fathe r: , diagnosed with Cancer Brother #1: , diagnosed with Cancer Brother #2: alive, diagnosed with NKFH Sister #1: , diagnosed with CAD [id number] Medical History Condition Response Thyroid Problems Y Diabetes Y Obesity Y Hypertension Y Past Encounters Encounter ID Performer Location Encounter Start Date Encounter Closed Date Diagnosis/Indication Diagnosis SNOMED-CT Code Diagnosis ICD10 Code Diagnosis Note [id number] HUYEN SORIA [facility] P-[id number] [address] [facility], [facility] [place] [address] 11/17/2022 15:27:01 11/17/2022 15:39:08 Sensorineural hearing loss 11792877 H90.3 [id number] Paul Batres M.D [facility] [address] [place] [address] 12/07/2022 10:46:14 12/07/2022 12:03:26 Lower urinary tract symptoms due to benign prostatic hypertrophy 1746849684 9101 N40.1 continue alpha blockade as prescribed Malignant neoplasm of prostate 523927669 C61 RTC 6mo [id number] [facility]EN SORIA [facility] [place] [address] [address] [place] [id number] 03/22/2023 14:21:55 03/22/2023 14:26:14 Sensorineural hearing loss 94414246 H90.3 [id number] [facility]EN SORIA [facility] [place] [address] 04/26/2023 13:19:11 04/26/2023 13:31:55 Sensorineural hearing loss 54844536 H90.3 [id number] Paul Batres M.D [facility] [address] [place] [address] 06/07/2023 10:51:44 06/07/2023 11:48:03 Lower urinary tract symptoms due to benign prostatic hypertrophy 2323787725 9101 N40.1 continue alpha blockade as prescribed Malignant neoplasm of prostate 028302275 C61 RT 1 year with psa if psa is stable [id number] HUYEN SORIA [facility] [place] [address] 08/17/2023 13:17:57 08/17/2023 13:22:33 Sensorineural hearing loss 64351431 H90.3 [id number] HUYEN SORIA [facility] [place] [address] 01/04/2024 09:45:50 01/04/2024 10:12:13 Sensorineural hearing loss 18362795 H90.3 [id number] HUYEN SORIA [facility]NT [facility] [facility], [place] [address] 03/13/2024 10:11:46 03/13/2024 10:17:35 Sensorineural hearing loss 33275226 H90.3 [id number] Paul Batres M.D [facility] [address] [facility] [address] 06/12/2024 10:49:29 06/12/2024 12:03:33 Malignant neoplasm of prostate 646143708 C61 RTC 1 year with psa if psa is stable Benign pro static hyperplasia with outflow obstruction 523308540 N40.1 will increase to BIDdecline s procedure at this time [id number] HUYEN SORIA [facility] [facility], [facility] [place] [address] 10/03/2024 15:30:37 10/03/2024 15:35:13 Sensorineural hearing loss 65707980 H90.3 Health Concerns Section Related Observation LastModified by Organization Detai ls LastModified Time None Recorded Concern Status LastModified by Organization Details LastModified Time None Recorded Advance Directives Directive Y: Payers Insurance Date Sequence Insurance Name Policy Number Policy [place] Covered Member ID [place] Member ID Guarantor Name 10/03/2024 1 [place] Rio Lopez [id number] Rio Lopez 10/03/2024 2 [place]MEDIC[place]LE[place] [id number] Rio Estradaarns [id number] Rio Lopez 05/19/2024 [employer] Rio Lopez [id number] Rio Lopez Notes Date Note Type Note Provider Name and Address Organization Details Recorded Time 08/17/2023 text/html Mr. Lopez was seen today for a hearing aid service. R aid is . 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 F/u prn. HUYEN SORIA [address] [facility], [place], [address], [facility] - [place] & [place] 08/17/2023 13:24:22 01/04/2024 text/html Patient was seen today for a hearing aid service. Cleaned and adjusted hearing aids this date. ROBERTH ANDREW, AUD [address], [place], [address], [place] - [facility] & [place] 01/04/2024 10:21:40 03/13/2024 text/html Patient was seen today for a hearing aid service. Cleaned and adjusted hearing aids this date. ROBERTH ANDREW, AUD [address], [place], [address], [facility] - [facility] & [place] 03/13/2024 10:23:37 06/12/2024 text/html Patient presents today for follow-up new diagnosis of prostate cancer. His PSA was 7.19. He underwent a prostate biopsy which revealed Century's 4+3 in 8 of 8 samples on the right and Ya 3 + 3 2 of 9 samples on the left. Tolerated his biopsy with no significant side effects He has had a CT scan and bone scan which was basically unremarkable. Seen by radiation therapy at [facility]. he has IMRT and then cyberknife ( spring 2020) and 6mo eligard. he is voiding with a weak streamno blood in the urine he is using flomax daily.psa was <0.064 Paul Batres M.D [address] [place] [address], [address], [place], [address], [facility] - [facility] & [place] 06/12/2024 11:45:21 10/03/2024 text/html Patient was seen today for a hearing aid service. Cleaned and adjusted hearing aids this date. ROBERTH MORALES, HUYEN [address], [place], [address], [place] - [facility] & [place] 10/03/2024 15:44:29
[2025-03-11 10:39] LABS: Amylase 56 U/L (30-110); Lipase 63 U/L (23-300)
[2025-03-11 12:26] LABS: Hemoglobin A1C 6.9 % (4.0-6.0)
[2025-03-12 08:12] LABS: CA 19-9 2 U/mL (0-35)
== END 2025-03-11 23:59 | disposition home or self-care (01) ==
LOC: LAB 09:14
PROVIDERS: PCP Emergency Medicine; Visit Provider Emergency Medicine
DX: E11.9 Type 2 diabetes mellitus without complications (principal); Z79.4 Long term (current) use of insulin
CPT/HCPCS: 36415; 82150; 83036; 83690; 86301